=== PATIENT | female | born 1990 | race Caucasian/White ===

== ENCOUNTER → 2019-05-07 | Outpatient (CLI) | payer BC ==
[2019-05-07 10:47] LABS: Hepatitis B Surface Antibody Positive
[2019-05-07 11:26] LABS: Hepatitis A Total Antibody Positive
[2019-05-07 17:25] LABS: Hepatitis B Core Total AB Negative; Hepatitis B Surface Antigen Negative (Negative); Hepatitis C Antibody Negative (Negative)
== END | disposition home or self-care (01) ==
LOC: LAB 09:19
PROVIDERS: ATTEND Nurse Practitioner
DX: Z11.3 Encounter for screening for infections with a predominantly sexual mode of transmission (principal); Z72.89 Other problems related to lifestyle
CPT/HCPCS: 36415; 86592; 86695; 86696; 86703; 86704; 86706; 86708; 86803; 87340

== ENCOUNTER 2022-05-31 19:23 | Emergency (ER) | payer SELFPAY ==
[~2022-05-31] VITALS: Ht 165.1 cm; Wt 65.9 kg
[2022-05-31 19:32] VITALS: BP 128/73
== END 2022-05-31 22:38 | disposition left against medical advice (07) ==
LOC: ER 19:23
DX: R21 Rash and other nonspecific skin eruption (principal); Z53.21 Procedure and treatment not carried out due to patient leaving prior to being seen by health care provider